=== PATIENT | female | born 1965 | race Caucasian/White ===

== ENCOUNTER 2024-02-05 07:43 | Emergency (ER) | payer OTHER ==
[~2024-02-05] VITALS: Ht 170.1 cm; Wt 140.6 kg
[2024-02-05] MEDS ORDERED: SODIUM CHLORIDE 0.9% 1,000 ML IV ONE (08:00)
[2024-02-05] MEDS ORDERED: Meclizine Hydrochloride 25 MG TAB PO ONE (08:00)
[2024-02-05] MEDS ORDERED: diphenhydrAMINE hydrochloride 50 MG/ML VIAL IV ONE (08:00)
[2024-02-05] MEDS ORDERED: Prochlorperazine Edisylate 10 MG/2 ML VIAL IV ONE (08:00)
[2024-02-05] MEDS ORDERED: DIAZEPAM 5 MG TAB PO ONE (08:00)
[2024-02-05 08:13] LABS: BASO # 0.1 10*3/uL (0.0-0.1); BASO % 0.8 % (0.0-1.0); EOS # 0.2 10*3/uL (0.0-0.4); HEMATOCRIT 39.1 % (37.0-47.0); LYMPH # 2.1 10*3/uL (1.3-4.4); LYMPH % 34.7 % (27.0-41.0); MEAN CORPUSCULAR HGB 31.5 pg (27.0-31.0); MEAN CORPUSCULAR HGB CONC 31.5 g/dl (33.0-37.0); MEAN PLATELET VOLUME 11.2 fl (9.6-12.3); MONO # 0.7 10*3/uL (0.1-1.0); NEUT # 2.9 10*3/uL (2.3-7.9); NEUT % 48.2 % (47.0-73.0); PLATELET COUNT AUTOMATED 311 10*3/uL (130-400); RED BLOOD COUNT 3.91 10*6/uL (4.10-5.10); RED CELL DISTRI WIDTH 13.5 % (0-14.5)
[2024-02-05 08:35] LABS: BUN 16 mg/dl (9-23); CHLORIDE 106 mmol/L (98-107); POTASSIUM 3.8 mmol/L (3.4-5.1)
[2024-02-05] MEDS ORDERED: COMPAZINE10 M1 PO (08:58)
[2024-02-05] MEDS ORDERED: ANTIVERT25 M2 PO (08:58)
== END 2024-02-05 09:04 | disposition home or self-care (01) ==
LOC: ED 07:43
PROVIDERS: Emergency Medicine
DX: H81.10 Benign paroxysmal vertigo, unspecified ear (principal); R11.2 Nausea with vomiting, unspecified; Z90.710 Acquired absence of both cervix and uterus; Z90.49 Acquired absence of other specified parts of digestive tract

== ENCOUNTER 2024-08-15 12:37 | Emergency (ER) | payer OTHER ==
[~2024-08-15 12:37] MED LIST: ANTIVERT25 M2 PO; COMPAZINE10 M1 PO
[2024-08-15] MEDS ORDERED: AMOX-CLAV 875-1 EACH PO (14:04)
[2024-08-15] MEDS ORDERED: Amoxicillin/Clavulanate Pota 875 MG TAB PO ONE (14:10)
== END 2024-08-15 14:15 | disposition home or self-care (01) ==
LOC: ED 12:37
DX: H66.92 Otitis media, unspecified, left ear (principal); H81.02 Meniere's disease, left ear; Z79.899 Other long term (current) drug therapy; Z90.49 Acquired absence of other specified parts of digestive tract; Z90.710 Acquired absence of both cervix and uterus

== ENCOUNTER 2025-02-18 09:23 | Emergency (ER) | payer OTHER ==
[~2025-02-18] VITALS: Ht 170.1 cm; Wt 104.3 kg
[~2025-02-18 09:23] MED LIST changes: +AMOX-CLAV 875-1 EACH PO
[2025-02-18] MEDS ORDERED: PREDNISONE20 M1 PO (11:03)
[2025-02-18] MEDS ORDERED: GUAIFENESIN AC473 M1 PO (11:03)
== END 2025-02-18 11:06 | disposition home or self-care (01) ==
LOC: ED 09:23
DX: J20.8 Acute bronchitis due to other specified organisms (principal); Z90.710 Acquired absence of both cervix and uterus; Z20.822 Contact with and (suspected) exposure to COVID-19